=== PATIENT | female | born 1960 | race Caucasian/White ===

== ENCOUNTER → 2023-01-27 | Outpatient (CLI) | payer OTHER | LOC: RAD 09:16 | DX: M17.12 Unilateral primary osteoarthritis, left knee (principal); M21.6X2 Other acquired deformities of left foot ==

== ENCOUNTER → 2023-10-13 | Outpatient (CLI) | payer OTHER | LOC: RAD 11:04 | DX: M17.12 Unilateral primary osteoarthritis, left knee (principal); M19.172 Post-traumatic osteoarthritis, left ankle and foot ==

== ENCOUNTER → 2023-11-30 | Outpatient (CLI) | payer OTHER ==
[2023-11-30 14:43] LABS: CALCIUM 9.8 mg/dL (8.3-10.5)
== END ==
LOC: LAB 14:06
PROVIDERS: Family Medicine
DX: E78.2 Mixed hyperlipidemia (principal); I10 Essential (primary) hypertension

== ENCOUNTER → 2023-12-08 | Outpatient (CLI) | payer OTHER ==
[2023-12-08 16:18] LABS: CALCIUM 9.8 mg/dL (8.3-10.5)
== END ==
LOC: LAB 15:56
PROVIDERS: Family Medicine
DX: R94.4 Abnormal results of kidney function studies (principal)

== ENCOUNTER → 2024-03-28 | Outpatient (CLI) | payer OTHER | LOC: LAB 10:44 → RAD 10:44 | DX: L08.9 Local infection of the skin and subcutaneous tissue, unspecified (principal) ==